=== PATIENT | female | born 1930 | race Caucasian/White ===

== ENCOUNTER 2017-10-02 06:20 | Observation (INO) ==
--- NOTE | 2017-10-02 06:40 | Emergency Department Note ---
Disposition Clinical Impression: SOB (shortness of breath), Elevated brain natriuretic peptide (BNP) level Disposition: Admitted As Inpatient Condition: Fair Referrals: Ree Tate CNP [Primary Care Provider] - Forms: ED Satisfaction Letter Time of Disposition: 08:00 SOB HPI - General Chief Complaint: ED Shortness of Breath/Dyspnea Stated Complaint: shortness of breath/weak Time Seen by Provider: 10/02/17 06:28 Source: patient Mode of arrival: ambulatory Limitations: no limitations Nursing Notes Reviewed: Yes Vital Signs Reviewed: Yes - History of Present Illness Nontoxic-appearing 86-year-old female presents for evaluation of shortness of breath and generalized weakness. The patient was seen here yesterday for the same complaint. At that time, she was found to have an elevated BNP level. At that time, as well, chest x-ray results showed minimal interstitial edema with trace effusions which were new from a previous chest x-ray obtained on a visit from September 20. There is concerned that there may be some element of congestive heart failure. The patient has not had a recent echocardiogram. On her visit yesterday, the patient was started on Lasix, 20 mg daily and instructed to follow-up with her primary care provider for a probable outpatient echocardiogram. The patient stated that she felt fine up until yesterday evening. At that time, or shortness of breath returned. She does describe an element of orthopnea as well as worsening exertional dyspnea. She denies any associated chest pain or palpitations. She denies any fever or chills. She denies any cough, sputum, or hemoptysis production. Pt Subjective Complaint: shortness of breath Onset (ago): week(s) Severity: moderate Consistency/Duration: gradually worsening Improves with: oxygen Worsens with: lying flat Associated symptoms: Reports: orthopnea. Denies: chest pain, pain with inspiration, fever, cough, wheezing, sputum production, palpitations, hemoptysis , nausea/vomiting, abdominal pain Treatment prior to arrival: none - Related Data Home oxygen amount: none Home Medications Medication Instructions Recorded Confirmed Losartan Potassium [Cozaar] 50 mg PO DAILY 01/24/16 10/02/17 Metoprolol Tartrate [Lopressor] 50 mg PO BID 01/24/16 10/02/17 Montelukast [Singulair] 10 mg PO DAILY 01/24/16 10/02/17 Simvastatin [Simvastatin] 10 mg PO QPM 01/24/16 10/02/17 Warfarin [Coumadin] 3 mg PO DAILY 01/24/16 10/02/17 dilTIAZem HCl [Diltiazem HCl] 120 mg PO QAM 01/24/16 10/02/17 LORazepam [Ativan] 0.5 mg PO DAILY PRN 10/02/17 10/02/17 Allergies Allergy/AdvReac Type Severity Reaction Status Date / Time ciprofloxacin [From Cipro] AdvReac Diarrhea Verified 05/10/16 08:25 Sulfa (Sulfonamide AdvReac Diarrhea Verified 05/10/16 08:25 Antibiotics) All systems ED: reviewed and negative except as stated. Constitutional: Denies: fever, chills, weakness, weight change Eyes: Denies: eye pain, eye discharge, vision change ENT ED: Denies: ear pain, throat pain, dental pain, hearing loss, epistaxis, congestion, dysphagia Cardiovascular: Reports: as per HPI, dyspnea on exertion, orthopnea. Denies: chest pain, palpitations, edema, syncope Respiratory: Reports: as per HPI, dyspnea. Denies: cough, wheezes, hemoptysis, stridor, sputum production Gastrointestinal: Denies: abdominal pain, nausea, vomiting, diarrhea, constipation, hematemesis, melena, hematochezia Genitourinary: Denies: dysuria, frequency, hematuria, discharge Musculoskeletal: Denies: back pain, neck pain, arthralgia, myalgia Integumentary: Denies: rash, abrasion, lesions Neurological: Denies: headache, weakness, numbness, paresthesias, confusion, abnormal gait, vertigo Psychiatric: Denies: anxiety, depression, suicidal thoughts, homicidal thoughts , auditory hallucinations, visual hallucinations Endocrine: Denies: fatigue Hematological/Lymphatic: Denies: easy bleeding, easy bruising Allergic/Immunologic: Denies: facial swelling, urticaria Past Medical History - Past Medical History Attestation: Yes The following information was validated with the patient. Source: patient, nursing notes reviewed Medical history: Reports: atrial fibrillation, hyperlipidemia, hypertension Psychiatric history: Reports: anxiety - Social History Smoking Status: Former smoker Smokeless Tobacco Status: No Alcohol use: Reports: none Drug use: Reports: none Physical Exam - General General appearance: alert, in no apparent distress - Head Head exam: atraumatic, normocephalic, normal inspection - Eye Eye exam: Present: normal appearance, PERRL, EOMI. Absent: nystagmus - ENT ENT exam: mucous membranes moist - Neck Neck exam: Present: normal inspection, full ROM, trachea midline - Chest Chest inspection: Present: normal inspection, symmetric chest wall rise - Respiratory Respiratory exam: Present: normal lung sounds bilaterally. Absent: respiratory distress, wheezes, stridor, accessory muscle use, prolonged expiratory phase - Cardiovascular Cardiovascular exam: Present: regular rate, normal rhythm, normal heart sounds - Abdominal Exam Abdominal exam: Present: soft, Non-Tender, normal bowel sounds - Extremities Exam Extremities exam: Present: normal inspection, full ROM, pedal edema (Trace pretibial edema noted bilaterally). Absent: tenderness - Neurological Exam Neurological exam: Present: alert, oriented X3 - Psychiatric Psychiatric exam: Present: normal affect, normal mood - Skin Skin exam: Present: warm, dry, intact, normal color Course Course Narrative: 0800: I spoke with Dr. Carrero, hospitalist on-call. Dr. Carrero has accepted the patient for admission to the hospitalist service for further evaluation and management. I discussed this plan with Dr. Eid, ED attending. Dr. Thorne has had a dase-rt-szna evaluation with the patient and agrees with this plan. Vital Signs Temperature 98.1 F 10/02/17 06:23 Pulse Rate 68 10/02/17 06:23 Respiratory Rate 14 10/02/17 06:23 Blood Pressure 155/81 10/02/17 06:23 O2 Sat by Pulse Oximetry 91 10/02/17 06:23 Temperature 98.1 F 10/02/17 06:23 Pulse Rate 68 10/02/17 06:23 Respiratory Rate 14 10/02/17 06:23 Blood Pressure 155/81 10/02/17 06:23 O2 Sat by Pulse Oximetry 91 10/02/17 06:23 Oxygen Delivery Oxygen Delivery Room Air Shortness of Breath/Dyspnea - MDM Narrative Medical decision making narrative: This documentation is done with the assistance of Dragon dictation. Despite efforts made to ensure accuracy, there may be inaccuracies in physician general practice or spelling and typographical errors. For this encounter, I have reviewed the [employer] or PA documentation, treatment plan, and medical decision making; and I have had face to face time with this patient. Patient seen and evaluated by Low Bonilla, prior to my arrival, he is considering admission for her stay asked if I would evaluate her once I arrived. Patient has a history of what sounds like dyspnea with possible CHF. Sounds like an acute exacerbation she is having no pain at this time. She has an enlarged heart on chest waiting on her BMP. She is getting some Lasix here blood pressure is not that elevated. She is on medications at this time and sees cardiology. We will bring her into the hospital for further evaluation. She is in agreement with this plan. Chest X-Ray 10/02/17 06:28 IMPRESSION: 1. Left-sided cardiac pacemaker with leads again projecting in the region of the right atrium as well as the coronary sinus. 2. Persistent enlargement of the cardiac silhouette with mild prominence of the interstitial markings. 3. No focal consolidation. D/ / Rashid Jerome MD / Rashid Jerome MD Interpreting Provider: Rashid Jerome MD - Medical Records Medical records reviewed: Yes I reviewed the patient's medical records. - Lab Data Lab results reviewed: Yes I reviewed the patient's lab results. Lab results narrative: Lab Results 10/02/17 10/02/17 10/02/17 Range/Units 06:40 06:40 06:40 WBC 7.1 (4.3-11.1) K/mcL RBC 4.73 (3.82-4.97) M/mcL Hgb 14.3 (11.5-15.4) g/dL Hct 42.9 (35.3-44.9) % MCV 90.7 (83.0-100.0) fL MCH 30.2 (28.0-33.3) pg MCHC 33.3 (31.6-35.5) g/dL RDW 14.4 (11.5-14.5) % Plt Count 216 (140-400) K/mcL MPV 9.3 L (9.4-12.4) fL Immature Gran % 0.4 (0-4) % Seg Neutrophils % 77.6 % Lymphocytes % 11.5 % Monocytes % 9.4 % Eosinophils % 1.0 % Basophils % 0.1 % Neutrophils # 5.5 (1.6-8.9) K/mcL Lymphocytes # 0.8 (0.6-4.6) K/mcL Monocytes # 0.7 (0.0-1.3) K/mcL Eosinophils # 0.1 (0.0-0.6) K/mcL Basophils # 0.0 (0.0-0.2) K/mcL PT (9.4-12.1) Seconds INR APTT (26.0-36.0) Seconds Sodium 138 (136-145) mEq/L Potassium 3.9 (3.5-5.1) mEq/L Chloride 103 (98-107) mEq/L Carbon Dioxide 25 (23-29) mEq/L BUN 26 H (8-23) mg/dL Creatinine 1.58 H (0.60-1.20) mg/dL Est GFR ( Amer) 38 L (> 60) Est GFR (Non-Af Amer) 31 L (> 60) BUN/Creatinine Ratio 16 (6-26) Glucose 117 H (70-105) mg/dL Calculated Osmolality 292 (280-300) Lactic Acid 0.9 (0.5-2.2) mmol/L Calcium 10.1 (8.6-10.3) mg/dL Troponin I < 0.03 (< 0.04) ng/mL B-Natriuretic Peptide (Less than 100) pg/mL Urine Color (Yellow) Urine Clarity (Clear) Urine pH (5.0-8.0) pH Units Ur Specific [place] (1.010-1.025) Urine Protein (Neg-Trace) mg/dL Urine Glucose (UA) (Normal) mg/dL Urine Ketones (Negative) mg/dL Urine Blood (Negative) Urine Nitrite (Negative) Urine Bilirubin (Negative) Urine Urobilinogen (Normal) mg/dL Ur Leukocyte Esterase (Negative) Urine Microscopic RBC (0-3) per hpf Urine Microscopic WBC (0-3) per hpf Ur Squamous Epith Cells (None-Few) per lpf Urine Bacteria (None-Few) per hpf Hyaline Casts (None-Few) per lpf Ur Culture Indicated? (NO) 10/02/17 10/02/17 10/02/17 Range/Units 06:40 06:40 06:58 WBC (4.3-11.1) K/mcL RBC (3.82-4.97) M/mcL Hgb (11.5-15.4) g/dL Hct (35.3-44.9) % MCV (83.0-100.0) fL MCH (28.0-33.3) pg MCHC (31.6-35.5) g/dL RDW (11.5-14.5) % Plt Count (140-400) K/mcL MPV (9.4-12.4) fL Immature Gran % (0-4) % Seg Neutrophils % % Lymphocytes % % Monocytes % % Eosinophils % % Basophils % % Neutrophils # (1.6-8.9) K/mcL Lymphocytes # (0.6-4.6) K/mcL Monocytes # (0.0-1.3) K/mcL Eosinophils # (0.0-0.6) K/mcL Basophils # (0.0-0.2) K/mcL PT 28.2 H (9.4-12.1) Seconds INR 2.5 APTT 41.2 H (26.0-36.0) Seconds Sodium (136-145) mEq/L Potassium (3.5-5.1) mEq/L Chloride (98-107) mEq/L Carbon Dioxide (23-29) mEq/L BUN (8-23) mg/dL Creatinine (0.60-1.20) mg/dL Est GFR ( Amer) (> 60) Est GFR (Non-Af Amer) (> 60) BUN/Creatinine Ratio (6-26) Glucose (70-105) mg/dL Calculated Osmolality (280-300) Lactic Acid (0.5-2.2) mmol/L Calcium (8.6-10.3) mg/dL Troponin I (< 0.04) ng/mL B-Natriuretic Peptide 675 H (Less than 100) pg/mL Urine Color Yellow (Yellow) Urine Clarity Clear (Clear) Urine pH 6.5 (5.0-8.0) pH Units Ur Specific [place] 1.013 (1.010-1.025) Urine Protein Trace (Neg-Trace) mg/dL Urine Glucose (UA) Normal (Normal) mg/dL Urine Ketones Negative (Negative) mg/dL Urine Blood Negative (Negative) Urine Nitrite Negative (Negative) Urine Bilirubin Negative (Negative) Urine Urobilinogen Normal (Normal) mg/dL Ur Leukocyte Esterase Moderate H (Negative) Urine Microscopic RBC 0-3 (0-3) per hpf Urine Microscopic WBC 3-5 H (0-3) per hpf Ur Squamous Epith Cells Many H (None-Few) per lpf Urine Bacteria None Seen (None-Few) per hpf Hyaline Casts None Seen (None-Few) per lpf Ur Culture Indicated? NO. A (NO) Result diagrams: 10/02/17 06:40 10/02/17 06:40 Lab Results 10/02/17 10/02/17 10/02/17 Range/Units 06:40 06:40 06:40 WBC 7.1 (4.3-11.1) K/mcL RBC 4.73 (3.82-4.97) M/mcL Hgb 14.3 (11.5-15.4) g/dL Hct 42.9 (35.3-44.9) % MCV 90.7 (83.0-100.0) fL MCH 30.2 (28.0-33.3) pg MCHC 33.3 (31.6-35.5) g/dL RDW 14.4 (11.5-14.5) % Plt Count 216 (140-400) K/mcL MPV 9.3 L (9.4-12.4) fL Immature Gran % 0.4 (0-4) % Seg Neutrophils % 77.6 % Lymphocytes % 11.5 % Monocytes % 9.4 % Eosinophils % 1.0 % Basophils % 0.1 % Neutrophils # 5.5 (1.6-8.9) K/mcL Lymphocytes # 0.8 (0.6-4.6) K/mcL Monocytes # 0.7 (0.0-1.3) K/mcL Eosinophils # 0.1 (0.0-0.6) K/mcL Basophils # 0.0 (0.0-0.2) K/mcL PT (9.4-12.1) Seconds INR APTT (26.0-36.0) Seconds Sodium 138 (136-145) mEq/L Potassium 3.9 (3.5-5.1) mEq/L Chloride 103 (98-107) mEq/L Carbon Dioxide 25 (23-29) mEq/L BUN 26 H (8-23) mg/dL Creatinine 1.58 H (0.60-1.20) mg/dL Est GFR ( Amer) 38 L (> 60) Est GFR (Non-Af Amer) 31 L (> 60) BUN/Creatinine Ratio 16 (6-26) Glucose 117 H (70-105) mg/dL Calculated Osmolality 292 (280-300) Lactic Acid 0.9 (0.5-2.2) mmol/L Calcium 10.1 (8.6-10.3) mg/dL Troponin I < 0.03 (< 0.04) ng/mL B-Natriuretic Peptide (Less than 100) pg/mL Urine Color (Yellow) Urine Clarity (Clear) Urine pH (5.0-8.0) pH Units Ur Specific [place] (1.010-1.025) Urine Protein (Neg-Trace) mg/dL Urine Glucose (UA) (Normal) mg/dL Urine Ketones (Negative) mg/dL Urine Blood (Negative) Urine Nitrite (Negative) Urine Bilirubin (Negative) Urine Urobilinogen (Normal) mg/dL Ur Leukocyte Esterase (Negative) Urine Microscopic RBC (0-3) per hpf Urine Microscopic WBC (0-3) per hpf Ur Squamous Epith Cells (None-Few) per lpf Urine Bacteria (None-Few) per hpf Hyaline Casts (None-Few) per lpf Ur Culture Indicated? (NO) 10/02/17 10/02/17 10/02/17 Range/Units 06:40 06:40 06:58 WBC (4.3-11.1) K/mcL RBC (3.82-4.97) M/mcL Hgb (11.5-15.4) g/dL Hct (35.3-44.9) % MCV (83.0-100.0) fL MCH (28.0-33.3) pg MCHC (31.6-35.5) g/dL RDW (11.5-14.5) % Plt Count (140-400) K/mcL MPV (9.4-12.4) fL Immature Gran % (0-4) % Seg Neutrophils % % Lymphocytes % % Monocytes % % Eosinophils % % Basophils % % Neutrophils # (1.6-8.9) K/mcL Lymphocytes # (0.6-4.6) K/mcL Monocytes # (0.0-1.3) K/mcL Eosinophils # (0.0-0.6) K/mcL Basophils # (0.0-0.2) K/mcL PT 28.2 H (9.4-12.1) Seconds INR 2.5 APTT 41.2 H (26.0-36.0) Seconds Sodium (136-145) mEq/L Potassium (3.5-5.1) mEq/L Chloride (98-107) mEq/L Carbon Dioxide (23-29) mEq/L BUN (8-23) mg/dL Creatinine (0.60-1.20) mg/dL Est GFR ( Amer) (> 60) Est GFR (Non-Af Amer) (> 60) BUN/Creatinine Ratio (6-26) Glucose (70-105) mg/dL Calculated Osmolality (280-300) Lactic Acid (0.5-2.2) mmol/L Calcium (8.6-10.3) mg/dL Troponin I (< 0.04) ng/mL B-Natriuretic Peptide 675 H (Less than 100) pg/mL Urine Color Yellow (Yellow) Urine Clarity Clear (Clear) Urine pH 6.5 (5.0-8.0) pH Units Ur Specific [place] 1.013 (1.010-1.025) Urine Protein Trace (Neg-Trace) mg/dL Urine Glucose (UA) Normal (Normal) mg/dL Urine Ketones Negative (Negative) mg/dL Urine Blood Negative (Negative) Urine Nitrite Negative (Negative) Urine Bilirubin Negative (Negative) Urine Urobilinogen Normal (Normal) mg/dL Ur Leukocyte Esterase Moderate H (Negative) Urine Microscopic RBC 0-3 (0-3) per hpf Urine Microscopic WBC 3-5 H (0-3) per hpf Ur Squamous Epith Cells Many H (None-Few) per lpf Urine Bacteria None Seen (None-Few) per hpf Hyaline Casts None Seen (None-Few) per lpf Ur Culture Indicated? NO. A (NO) - Radiology Data Radiology results reviewed: Yes I reviewed the patient's radiology results. Chest X-Ray 10/02/17 06:28 IMPRESSION: 1. Left-sided cardiac pacemaker with leads again projecting in the region of the right atrium as well as the coronary sinus. 2. Persistent enlargement of the cardiac silhouette with mild prominence of the interstitial markings. 3. No focal consolidation. D/ / Rashid Jerome MD / Rashid Jerome MD Interpreting Provider: Rashid Jerome MD - EKG Data EKG attestation: Yes I reviewed and interpreted this EKG. EKG results narrative: EKG reviewed by Dr. Agudelo as well. EKG shows atrial fibrillation at a rate of 77 bpm. QRS duration 136, QT/QTc interval 42/455. No ST elevation. No ectopy.
[2017-10-02 06:55] LABS: Basophils % 0.1 %; Eosinophils # 0.1 K/mcL (0.0-0.6); Hematocrit 42.9 % (35.3-44.9); Hemoglobin 14.3 g/dL (11.5-15.4); Immature Granulocytes % 0.4 % (0-4); Lymphocytes # 0.8 K/mcL (0.6-4.6); Lymphocytes % 11.5 %; Mean Corpuscular HGB Conc 33.3 g/dL (31.6-35.5); Mean Corpuscular Hemoglobin 30.2 pg (28.0-33.3); Mean Corpuscular Volume 90.7 fL (83.0-100.0); Mean Platelet Volume 9.3 fL (9.4-12.4); Monocytes # 0.7 K/mcL (0.0-1.3); Monocytes % 9.4 %; Neutrophils # 5.5 K/mcL (1.6-8.9); Platelet Count 216 K/mcL (140-400); Red Blood Count 4.73 M/mcL (3.82-4.97); Red Cell Distribution Width 14.4 % (11.5-14.5); Segmented Neutrophils % 77.6 %
[2017-10-02 07:00] LABS: INR 2.5; Prothrombin Time 28.2 Seconds (9.4-12.1)
[2017-10-02 07:03] LABS: Activated Partial Thrombo Time 41.2 Seconds (26.0-36.0)
[2017-10-02 07:10] LABS: Bilirubin,Urine Negative (Negative); Blood,Urine Negative (Negative); Clarity,Urine Clear (Clear); Color,Urine Yellow (Yellow); Glucose,Urine (UA) Normal (Normal); Ketones,Urine Negative (Negative); Leukocyte Esterase,Urine Moderate (Negative); Nitrite,Urine Negative (Negative); PH,Urine 6.5 pH Units (5.0-8.0); Protein,Urine Trace mg/dL (Neg-Trace); Specific Gravity,Urine 1.013 (1.010-1.025); Urobilinogen,Urine Normal (Normal)
[2017-10-02 07:19] LABS: Bacteria,Urine None Seen per hpf (None-Few); Hyaline Casts,Urine None Seen per lpf (None-Few); RBC,Urine 0-3 per hpf (0-3); Squamous Epithelial Cell,Urine Many per lpf (None-Few)
[2017-10-02 07:20] LABS: BUN/Creatinine Ratio 16 (6-26); Blood Urea Nitrogen 26 mg/dL (8-23); Calcium 10.1 mg/dL (8.6-10.3); Carbon Dioxide 25 mEq/L (23-29); Chloride 103 mEq/L (98-107); Glucose 117 mg/dL (70-105); Osmolality,Calculated 292 (280-300); Potassium 3.9 mEq/L (3.5-5.1); Sodium 138 mEq/L (136-145); Troponin I < 0.03 ng/mL (< 0.04); eGFR For Non-African Americans 31 (> 60)
[2017-10-02] MEDS ORDERED: Furosemide 40 MG/4 ML VIAL IVP ONE (07:24)
--- NOTE | 2017-10-02 09:46 | Electrocardiograph Report ---
[address] [address] Test Date: 2017-10-02 Pat Name: Nimo Carvajal Department: [id number] Room: 3B14 Gender: F Home Security Alarm Installer: : [id number] Requested By: Low Bonilla Order Number: [id number] Reading MD: Sascha Lopez Measurements Intervals [place] Rate: 77 P: [place]: 0 QRS: -23 QRSD: 136 T: 31 QT: 424 QTc: 455 Interpretive Statements ATRIAL FIBRILLATION BORDERLINE LEFT AXIS DEVIATION RIGHT BUNDLE BRANCH BLOCK VOLTAGE CRITERIA FOR LVH Electronically Signed On 10-02-2017 9:44:43 EDT by Sascha Lopez
--- NOTE | 2017-10-02 10:52 | Cardiology Consult Note ---
Addendum entered and electronically signed by Nico Luna CNP 10/02/17 14:10 : Echo pending. Cardiology will s/o, re-consult PRN, f/u arranged. Original Note: <Nico Luna - Last Filed: 10/02/17 12:53> Date of Encounter: 10/02/17 Time of Encounter: 11:00 Assessment and Plan (1) SOB (shortness of breath) Current Visit: Yes Status: Acute Per Cardiology: BNP 675, was noted yesterday to be 538. Of note to 281 in 2014. Status post IV Lasix 40 mg 1. Previous echo from March 2014 showed EF 65%, indeterminate diastolic function, mildly dilated left atrium, mildly dilated right atrium, moderate TR, mild pulmonary hypertension. Suspect mild CHF. Echo pending. (2) Atrial fibrillation, chronic Current Visit: No Status: Chronic Per Cardiology: History of tachybradycardia syndrome, atrial fibrillation with dual-chamber pacemaker and on Coumadin for anticoagulation follows with [facility]. Current INR 2.5. Denies any active bleeding or blood loss. Discussion w patient/family: The assessment and plan as outlined above was discussed with the patient who expressed understanding and agreement. All questions were answered. Thank you for involving us in the care of your patient. Please call with any questions. History of Present Illness Consult date: 10/02/17 Requesting physician: Mike Carrero Consult reason: SOB Chief complaint: SOb at rest History of present illness: Ms. Carvajal is a 86 year old female with a relevant past medical history of tachybradycardia syndrome with pacemaker, CAD, atrial fibrillation, HTN, HLD. Last seen by cardiology August [address] Reno Hull. Cardiology consult for shortness of breath. Patient reports increased shortness of breath at rest occurring at nighttime upon awakening the past 3-4 weeks. She does report high sodium intake and eats lots of potato chips. She reports baseline weight about 142-148 pounds, does not weight herself on a daily basis. She denies any chest pain, palpitations, dizziness, syncope, falls. Denies any active bleeding or blood loss. Reports shortness of breath has improved with IV Lasix in the ER. Past Med Surg Social Fam HX - Past Medical History Attestation: Yes The following information was validated with the patient. Source: patient, old records reviewed Medical history: atrial fibrillation, hyperlipidemia, hypertension Psychiatric history: anxiety - Past Surgical History Additional surgical history: left arm, pacemaker, carotid endardectomy - Social History Smoking Status: Former smoker Smokeless Tobacco Status: No Alcohol use: none Drug use: none Medications and Allergies Losartan Potassium [Cozaar] 50 mg PO DAILY 01/24/16 [History] Metoprolol Tartrate [Lopressor] 50 mg PO BID 01/24/16 [History] Montelukast [Singulair] 10 mg PO DAILY 01/24/16 [History] Simvastatin [Simvastatin] 10 mg PO QPM 01/24/16 [History] Warfarin [Coumadin] 3 mg PO DAILY 01/24/16 [History] dilTIAZem HCl [Diltiazem HCl] 120 mg PO QAM 01/24/16 [History] LORazepam [Ativan] 0.5 mg PO DAILY PRN 10/02/17 [History] 3 Allergy/AdvReac Type Severity Reaction Status Date / Time ciprofloxacin [From Cipro] AdvReac Diarrhea Verified 05/10/16 08:25 Sulfa (Sulfonamide AdvReac Diarrhea Verified 05/10/16 08:25 Antibiotics) All Systems Review: The remainder of the systems were reviewed and are negative - Cardiovascular Cardiovascular: as per HPI, dyspnea at rest - Respiratory Respiratory: cough Physical Examination Vital Signs, Last 4 Hours Temp Pulse Resp BP Pulse Ox 10/02/17 08:52 97.5 F L 71 15 147/76 95 10/02/17 08:29 19 131/66 General: Conversant, No Apparent Distress HEENT: Atraumatic, Normocephaly, Mucus Membranes Moist Neck: No JVD, Normal carotid pulses Cardiac: No Murmur, Other (Irregularly irregular) Lungs: Normal Breath Sounds, No Wheeze, Rales, Rhonchi Neuro: Alert and responsive, No focal deficits noted Abdomen: Soft, Non-Tender Skin: No rashes noted on visualized skin Musculoskeletal: No Chest Wall Tenderness Extremities: No Clubbing, No Cyanosis, Normal Pulses, Other (Trace bilateral lower extremity nonpitting edema) Results 10/02/17 06:40 10/02/17 06:40 Laboratory Tests 01/25/17 06/08/17 09/20/17 11:02 12:02 12:34 Hgb Hct INR Creatinine 1.84 H 1.63 H 1.78 H Est GFR (Non-Af Amer) 26 L 30 L 27 L Troponin I B-Natriuretic Peptide 10/01/17 10/02/17 10/02/17 08:33 06:40 06:40 Hgb 14.3 Hct 42.9 INR Creatinine 1.73 H 1.58 H Est GFR (Non-Af Amer) 28 L 31 L Troponin I < 0.03 B-Natriuretic Peptide 10/02/17 10/02/17 06:40 06:40 Hgb Hct INR 2.5 Creatinine Est GFR (Non-Af Amer) Troponin I B-Natriuretic Peptide 675 H ITS Impressions Chest X-Ray 10/02/17 06:28 IMPRESSION: 1. Left-sided cardiac pacemaker with leads again projecting in the region of the right atrium as well as the coronary sinus. 2. Persistent enlargement of the cardiac silhouette with mild prominence of the interstitial markings. 3. No focal consolidation. D/ / Rashid Jerome MD / Rashid Jerome MD Interpreting Provider: Rashid Jerome MD - Imaging and Cardiology Echo: pending, report reviewed - EKG Interpretation EKG results cardiology: personally reviewed (Rasheed arevalo in 70s), no diagnostic ischemia Consult Discharge Plan - Plan Referrals: Ree Tate INSURANCE POLICY CLERK [Primary Care Provider] - <BrightLouann - Last Filed: 10/02/17 15:35> Date of Encounter: 10/02/17 - Attending Attestation I examined this patient and my medical decision-making was reviewed with the INSURANCE POLICY CLERK. I agree with the documented findings, disposition and treatment plan as described. Ms. Carvajal presents with SOB for the past month. Endorses increased dietary sodium indiscretion. Noticeable elevated BP in setting of CKD. Mild interstitial prominence on CXR, mild elevation of BNP. Patient appears comfortable at the bedside. She is interested in going home. Breathing comfortably on room air. IV diuresis and BP management per primary team. Awaiting Echo findings. Provided echo findings are unremarkable, would recommend outpatient follow up. Assessment and Plan Discussion w patient/family: The assessment and plan as outlined above was discussed with the patient and/or family members who expressed understanding and agreement. All questions were answered. Thank you for involving us in the care of your patient. Please call with any questions. History of Present Illness History of present illness: Ms. Carvajal is a 86 year old female All Systems Review: The remainder of the systems were reviewed and are negative Physical Examination Vital Signs, Last 4 Hours Pulse Resp BP Pulse Ox 10/02/17 13:10 58 18 179/76 97 10/02/17 12:40 63 18 178/73 95 10/02/17 12:25 58 18 174/73 95 10/02/17 12:10 65 18 173/67 95 Results 10/02/17 06:40 10/02/17 06:40
--- NOTE | 2017-10-02 18:03 | Internal Med History&Physical ---
Date of Encounter: 10/02/17 Time of Encounter: 11:00 Internal Medicine - H&P: HPI Chief complaint: Shortness of breath Admitted From: Home Plans for Post Hospital Care: Home History of present illness: Patient is an 86-year-old female with past medical history significant for A. fib with AICD, hypertension and hyperlipidemia who presents to the ER on 10/02/17 due to some breath. Patient reports a one-week history of shortness of breath with exertion. Patient with no improvement in symptoms so decided come to the ER for evaluation. In the ER, patient was found to have a BNP of 675 with persistent enlargement of the cardiac silhouette with mild prominence of the interstitial markings on chest x-ray. Patient will be admitted for CHF exacerbation. Past Med Surg Social Fam HX - Past Medical History Medical history: atrial fibrillation, hyperlipidemia, hypertension Psychiatric history: anxiety - Past Surgical History Additional surgical history: left arm, pacemaker, carotid endardectomy - Social History Smoking Status: Former smoker Smokeless Tobacco Status: No Alcohol use: none Drug use: none - Additional Family History Additional family history: Noncontributory Internal Medicine - H&P: Meds Losartan Potassium [Cozaar] 50 mg PO DAILY 01/24/16 [History] Metoprolol Tartrate [Lopressor] 50 mg PO BID 01/24/16 [History] Montelukast [Singulair] 10 mg PO DAILY 01/24/16 [History] Simvastatin [Simvastatin] 10 mg PO QPM 01/24/16 [History] Warfarin [Coumadin] 3 mg PO DAILY 01/24/16 [History] dilTIAZem HCl [Diltiazem HCl] 120 mg PO QAM 01/24/16 [History] LORazepam [Ativan] 0.5 mg PO DAILY PRN 10/02/17 [History] 3 Allergy/AdvReac Type Severity Reaction Status Date / Time ciprofloxacin [From Cipro] AdvReac Diarrhea Verified 05/10/16 08:25 Sulfa (Sulfonamide AdvReac Diarrhea Verified 05/10/16 08:25 Antibiotics) All Systems PM: A 10-system review of systems was performed and is negative for pertinent findings except as documented above in the HPI. - Constitutional Vitals: Temp Pulse Resp BP Pulse Ox 98.1 F 71 16 138/82 95 10/02/17 15:33 10/02/17 15:33 10/02/17 15:33 10/02/17 15:33 10/02/17 15:33 General appearance: Present: A&O X 3, no acute distress - Eye Eye exam: Present: normal appearance - ENT ENT exam: Present: mucous membranes moist - Respiratory Respiratory exam: Present: CTAB. Absent: accessory muscle use, rales, rhonchi, wheezes - Cardiovascular Cardiovascular exam: Present: RRR, +S1, +S2. Absent: diastolic murmur, gallop, rubs, systolic murmur - GI/Abdominal GI/Abdominal exam: Present: normal bowel sounds, soft, no peritoneal signs. Absent: distended, tenderness - Extremities Exam Extremities exam: Absent: pedal edema - Neurological Exam Neurological exam: Present: oriented X3 - Psychiatric Psychiatric exam: Present: normal mood - Skin Skin exam: Present: normal color Internal Med - H&P Results - Labs CBC & Chem 7: 10/02/17 06:40 10/02/17 06:40 - Assessment and plan (1) SOB (shortness of breath) Current Visit: Yes Status: Acute Assessment and plan: Patient found to have elevated BNP of 675 on admission She was given 1 dose of IV Lasix 40 mg. Echocardiogram pending Cardiology consulted and appreciate recommendations. (2) Atrial fibrillation, chronic Current Visit: No Status: Chronic Assessment and plan: Rate controlled on metoprolol and Cardizem Continue Coumadin for anticoagulation; INR therapeutic at 2.5 (3) HLD (hyperlipidemia) Current Visit: Yes Status: Acute Assessment and plan: Continue statin Qualifiers: Hyperlipidemia type: unspecified Qualified Code(s): E78.5 - Hyperlipidemia , unspecified (4) DVT prophylaxis Current Visit: Yes Status: Acute Assessment and plan: Patient on Coumadin as above - Time Spent With Patient Total time spent is greater than 50% in coordination of care (as documented) at patient's floor/unit and/or counseling patient:
[2017-10-02] MEDS ORDERED: Naloxone 0.4 MG/ML INJ IVP PRN (18:15)
[2017-10-02] MEDS ORDERED: *HR* LORazepam 0.5 MG TABLET PO PRN (18:18)
[2017-10-02] MEDS: *HR* Warfarin 3 MG TABLET PO SCH (19:35)
[2017-10-03 04:56] LABS: Basophils % 0.3 %; Eosinophils # 0.1 K/mcL (0.0-0.6); Eosinophils % 0.7 %; Hematocrit 44.1 % (35.3-44.9); Hemoglobin 14.8 g/dL (11.5-15.4); Immature Granulocytes % 0.1 % (0-4); Lymphocytes # 1.1 K/mcL (0.6-4.6); Lymphocytes % 14.9 %; Mean Corpuscular HGB Conc 33.6 g/dL (31.6-35.5); Mean Corpuscular Hemoglobin 30.2 pg (28.0-33.3); Monocytes # 0.8 K/mcL (0.0-1.3); Monocytes % 10.7 %; Neutrophils # 5.4 K/mcL (1.6-8.9); Platelet Count 218 K/mcL (140-400); Red Cell Distribution Width 14.4 % (11.5-14.5); Segmented Neutrophils % 73.3 %
[2017-10-03 05:13] LABS: Calcium 10.3 mg/dL (8.6-10.3); Potassium 3.6 mEq/L (3.5-5.1)
[2017-10-03] MEDS ORDERED: Ondansetron ODT 4 MG TAB.RAPDIS SL ONE (06:37)
[2017-10-03] MEDS: *HR* Warfarin 3 MG TABLET PO SCH (08:50)
[2017-10-03] MEDS ORDERED: dilTIAZem HCl 60 MG TABLET PO SCH (09:00)
[2017-10-03 11:03] VITALS: BP 116/75
[2017-10-03] MEDS ORDERED: Furosemide 20 MG TABLET PO SCH (11:45)
--- NOTE | 2017-10-03 11:51 | Discharge Summary ---
- NOTES TO OUTPATIENT PROVIDER Notes to Outpatient Provider: Admitted with shortness of breath, concerns for congestive heart failure. Treated with IV diuretics, Respiratory status improved. She was able to ambulate in the schmitt on room air with portable pulse oximeter with SPO2 dropping to 90-91% with ambulation and returning back to 96 or greater with rest. She is being discharged with a new prescription for Lasix 20 mg daily x3 days. Date of Encounter: 10/03/17 Time of Encounter: 11:47 - Discharge Diagnosis (1) SOB (shortness of breath) Priority: Secondary Status: Acute Assessment and Plan: Patient found to have elevated BNP of 675 on admission--chest x-ray shows cardiomegaly and mild prominence of interstitial markings She was given 1 dose of IV Lasix 40 mg, shortness of breath improved. However, per auscultation this morning she was found to have fine crackles in the right lower lobe She was able to ambulate around the unit on room air and portable pulse oximeter with SPO2 dropping to 90 and returning back to 94-96% with rest She is being started on 20 mg by mouth Lasix daily x3 days Echocardiogram pending She is instructed to follow up with her PCP within 1 week of discharge (2) Atrial fibrillation, chronic Priority: Primary Status: Chronic Assessment and Plan: continue coumadin f/u with anticoagulation clinic (3) HLD (hyperlipidemia) Priority: Secondary Status: Acute Qualifiers: Hyperlipidemia type: unspecified Qualified Code(s): E78.5 - Hyperlipidemia , unspecified (4) DVT prophylaxis Priority: Secondary Status: Acute Hospital course: Ms. Carvajal is a 86 year old female who was admitted for shortness of breath. Found to have an elevated BNP on arrival. He was given 40 mg IV Lasix, respiratory status improved. Uneventful hospital course, on day of discharge 10/03/17 patient reporting that she is returning back to baseline status. She was able to ambulate in the hallway on room air and portable pulse oximeter with SPO2 dropping to 90% and returning to 94-96% with rest. She does not appear overtly short of breath. Per auscultation this morning she continues to have fine right lower lobe crackles. She will be discharged with Lasix 20 mg by mouth daily 3 days has been instructed to follow-up with her PCP within one week. TTE completed with the following findings--normal LV size and function, mild LV hypertrophy, indeterminate diastolic function, atypical septal motion consistent with paced rhythm, normal RV structure and function, mild aortic regurgitation, mild aortic stenosis, mild mitral stenosis, mild to moderate regurgitation, mild tricuspid regurgitation, mild pulmonary hypertension. He device lead was visualized in the right atrium and right ventricle Discharge discussed with: patient, family, nurse - Time Spent with Patient Total time spent providing and/or coordinating discharge services: Less than 30 minutes - Discharge Medications Prescriptions: Furosemide [Lasix] 20 mg PO DAILY 3 Days #3 tablet Home Medications: Losartan Potassium [Cozaar] 50 mg PO DAILY 01/24/16 [History] Metoprolol Tartrate [Lopressor] 50 mg PO BID 01/24/16 [History] Montelukast [Singulair] 10 mg PO DAILY 01/24/16 [History] Simvastatin 10 mg PO QPM 01/24/16 [History] Warfarin [Coumadin] 3 mg PO DAILY 01/24/16 [History] dilTIAZem HCl [Diltiazem HCl] 120 mg PO QAM 01/24/16 [History] LORazepam [Ativan] 0.5 mg PO DAILY PRN 10/02/17 [History] Furosemide [Lasix] 20 mg PO DAILY 3 Days #3 tablet 10/03/17 [Rx] Allergies/Adverse Reactions: 3 Allergy/AdvReac Type Severity Reaction Status Date / Time ciprofloxacin [From Cipro] AdvReac Diarrhea Verified 05/10/16 08:25 Sulfa (Sulfonamide AdvReac Diarrhea Verified 05/10/16 08:25 Antibiotics) Date of admission: 10/02/17 08:06 Primary care physician: Ree Tate CNP Consults: 10/02/17 10:03 Consult to Cardiology [CONS] Routine Comment: Consulting Provider: Cardiology Vandana Reason for Consult: new onset CHF Call Completed: No 10/02/17 10:04 Consult to Nurse Navigator [CONS] Routine Comment: CHF Discharging clinician: Chris Brizuela Anticipated date of discharge: 10/03/17 - Constitutional Vitals: Temp Pulse Resp BP Pulse Ox 98.2 F 73 15 116/75 93 10/03/17 11:02 10/03/17 11:02 10/03/17 11:02 10/03/17 11:02 10/03/17 11:02 General appearance: Present: A&O X 3, no acute distress - Head Head exam: Present: atraumatic, normocephalic - Eye Eye exam: Present: PERRL, conjuntiva pink, sclera anicteric Pupils: Present: PERRL - Neck Neck exam general surgery: Present: supple, trachea midline. Absent: lymphadenopathy - Respiratory Respiratory exam: Present: CTAB, rales (Fine crackles right lower lobe). Absent : accessory muscle use, rhonchi, wheezes - Cardiovascular Cardiovascular exam: Present: RRR, +S1, +S2. Absent: diastolic murmur, gallop, rubs, systolic murmur - GI/Abdominal GI/Abdominal exam: Present: normal bowel sounds, soft, no peritoneal signs. Absent: distended, tenderness - Extremities Exam Extremities exam: Present: warm, radial pulses palpable and symmetrical. Absent : calf tenderness, cyanotic, pedal edema - Neurological Exam Neurological exam: Present: CN II-XII intact, oriented X3, no focal deficits. Absent: pronater drift, facial droop, speech deficit - Skin Skin exam: Present: dry, intact - Patient Status Disposition: Home, Self-Care Condition: Fair Functional capacity at discharge: independent ambulation Overall status at discharge: patient is progressing back to baseline - Discharge Instructions Follow Up With: Ree Tate CNP [Primary Care Provider] - 10/09/17 1:00 pm - Diet and Activity Activity: increase activity as tolerated, resume usual activities as tolerated Diet: diabetic diet, low fat, low cholesterol
[2017-10-03] MEDS ORDERED: *HR* Warfarin 3 MG TABLET PO SCH (18:00)
== END 2017-10-03 14:28 | disposition home or self-care (01) ==
LOC: EMEROO 06:20 → 3BNU 06:20
PROVIDERS: ADMIT Hospitalist; ATTEND Hospitalist

== ENCOUNTER 2019-02-23 08:24 | Inpatient (IN) ==
[2019-02-23 09:08] LABS: INR 2.7; Prothrombin Time 30.5 Seconds (9.4-12.1)
[2019-02-23 09:10] LABS: Basophils % 0.3 %; Eosinophils # 0.1 K/mcL (0.0-0.6); Eosinophils % 1.2 %; Hematocrit 40.9 % (35.3-44.9); Hemoglobin 13.6 g/dL (11.5-15.4); Immature Granulocytes % 0.1 % (0-4); Lymphocytes % 14.8 %; Mean Corpuscular HGB Conc 33.3 g/dL (31.6-35.5); Mean Corpuscular Hemoglobin 30.1 pg (28.0-33.3); Mean Corpuscular Volume 90.5 fL (83.0-100.0); Monocytes # 0.5 K/mcL (0.0-1.3); Monocytes % 7.7 %; Neutrophils # 5.2 K/mcL (1.6-8.9); Platelet Count 221 K/mcL (140-400); Red Blood Count 4.52 M/mcL (3.82-4.97); Red Cell Distribution Width 15.1 % (11.5-14.5); Segmented Neutrophils % 75.9 %; White Blood Count 6.9 K/mcL (4.3-11.1)
[2019-02-23 09:25] LABS: Alanine Aminotransferase 20 Units/L (7-52); Albumin 4.2 g/dL (3.5-5.7); Albumin/Globulin Ratio 1.4 (1.1-2.2); Alkaline Phosphatase 73 Units/L (34-104); Aspartate Amino Transferase 29 Units/L (13-39); BUN/Creatinine Ratio 17 (6-26); Bilirubin,Direct 0.4 mg/dL (0.0-0.2); Bilirubin,Indirect 1.3 mg/dL (0.0-1.0); Bilirubin,Total 1.7 mg/dL (0.3-1.0); Blood Urea Nitrogen 32 mg/dL (8-23); Calcium 10.1 mg/dL (8.6-10.3); Carbon Dioxide 23 mEq/L (23-29); Chloride 104 mEq/L (98-107); Globulin 3.1 g/dL (2.4-3.5); Glucose 109 mg/dL (70-105); Osmolality,Calculated 297 (280-300); Potassium 4.2 mEq/L (3.5-5.1); Sodium 140 mEq/L (136-145); Total Protein 7.3 g/dL (6.4-8.9); Troponin I < 0.03 ng/mL (< 0.04); eGFR For African Americans 32 (> 60); eGFR For Non-African Americans 26 (> 60)
[2019-02-23] MEDS ORDERED: Furosemide 40 MG/4 ML VIAL IVP ONE (09:26)
[2019-02-23] MEDS ORDERED: Aspirin 325 MG TABLET PO ONE (09:48)
[2019-02-23] MEDS ORDERED: Acetaminophen 325 MG TABLET PO PRN (13:03)
[2019-02-23] MEDS ORDERED: MOM Conc 10 ML UD.LIQ PO PRN (13:03)
[2019-02-23] MEDS ORDERED: Mag Hydrox/Al Hydrox/Simeth 30 ML UDC PO PRN (13:03)
[2019-02-23] MEDS ORDERED: *HR* Promethazine 25 MG/ML VIAL IVP PRN (13:03)
[2019-02-23] MEDS ORDERED: Naloxone 0.4 MG/ML INJ IVP PRN (13:03)
[2019-02-23] MEDS ORDERED: Ondansetron 4 MG/2 ML VIAL IVP PRN (13:03)
[2019-02-23] MEDS: Furosemide 20 MG/2 ML VIAL IVP SCH (17:12)
[2019-02-23] MEDS ORDERED: Warfarin perPT PO PRN (18:00)
[2019-02-23] MEDS ORDERED: *HR* Warfarin 3 MG TABLET PO ONE (18:00)
[2019-02-23] MEDS: Metoprolol 100 MG TABLET PO SCH (21:09)
[2019-02-24 05:24] LABS: Basophils % 0.3 %; Eosinophils # 0.1 K/mcL (0.0-0.6); Eosinophils % 1.4 %; Hematocrit 44.1 % (35.3-44.9); Hemoglobin 14.5 g/dL (11.5-15.4); Immature Granulocytes % 0.1 % (0-4); Lymphocytes # 0.9 K/mcL (0.6-4.6); Lymphocytes % 12.8 %; Mean Corpuscular HGB Conc 32.9 g/dL (31.6-35.5); Mean Corpuscular Hemoglobin 30.3 pg (28.0-33.3); Mean Corpuscular Volume 92.3 fL (83.0-100.0); Mean Platelet Volume 9.8 fL (9.4-12.4); Monocytes # 0.8 K/mcL (0.0-1.3); Monocytes % 10.3 %; Neutrophils # 5.5 K/mcL (1.6-8.9); Platelet Count 227 K/mcL (140-400); Red Blood Count 4.78 M/mcL (3.82-4.97); Red Cell Distribution Width 14.6 % (11.5-14.5); Segmented Neutrophils % 75.1 %; White Blood Count 7.4 K/mcL (4.3-11.1)
[2019-02-24 05:35] LABS: INR 2.7; Prothrombin Time 30.7 Seconds (9.4-12.1)
[2019-02-24 05:44] LABS: Calcium 10.2 mg/dL (8.6-10.3); Potassium 3.6 mEq/L (3.5-5.1)
[2019-02-24] MEDS: Diltiazem CD (24hr) 120 MG CAPSULE PO SCH (07:50)
[2019-02-24] MEDS: Metoprolol 100 MG TABLET PO SCH ×2 (07:51→20:14)
[2019-02-24] MEDS: Furosemide 20 MG/2 ML VIAL IVP SCH (07:51)
[2019-02-24] MEDS ORDERED: NON-FORMULARY MEDICATION 1 EACH EACH (Losartan Potassium [Cozaar] 50 MG) PO SCH (09:00)
[2019-02-24] MEDS ORDERED: *HR* Warfarin 3 MG TABLET PO ONE (18:00)
[2019-02-25 04:21] LABS: Basophils % 0.4 %; Eosinophils # 0.1 K/mcL (0.0-0.6); Eosinophils % 1.6 %; Hematocrit 48.4 % (35.3-44.9); Hemoglobin 15.9 g/dL (11.5-15.4); Immature Granulocytes % 0.2 % (0-4); Lymphocytes # 1.6 K/mcL (0.6-4.6); Lymphocytes % 18.8 %; Mean Corpuscular HGB Conc 32.9 g/dL (31.6-35.5); Mean Corpuscular Hemoglobin 30.1 pg (28.0-33.3); Mean Corpuscular Volume 91.5 fL (83.0-100.0); Mean Platelet Volume 9.8 fL (9.4-12.4); Monocytes # 0.9 K/mcL (0.0-1.3); Monocytes % 9.9 %; Neutrophils # 5.9 K/mcL (1.6-8.9); Platelet Count 263 K/mcL (140-400); Red Blood Count 5.29 M/mcL (3.82-4.97); Red Cell Distribution Width 14.8 % (11.5-14.5); Segmented Neutrophils % 69.1 %; White Blood Count 8.6 K/mcL (4.3-11.1)
[2019-02-25 04:35] LABS: INR 2.3; Prothrombin Time 26.6 Seconds (9.4-12.1)
[2019-02-25 04:42] LABS: Calcium 10.4 mg/dL (8.6-10.3); Potassium 3.8 mEq/L (3.5-5.1)
[2019-02-25] MEDS: Metoprolol 100 MG TABLET PO SCH ×2 (08:22→22:07)
[2019-02-25] MEDS: Diltiazem CD (24hr) 120 MG CAPSULE PO SCH (08:22)
[2019-02-25] MEDS ORDERED: Furosemide 40 MG TABLET PO SCH (09:00)
[2019-02-25] MEDS ORDERED: 0.9 % Sodium Chloride 500 ML IVC SCH ×2 (14:00→14:37)
[2019-02-25] MEDS ORDERED: *HR* Warfarin 3 MG TABLET PO ONE (18:00)
[2019-02-25] MEDS: Maxitrol Opth OINT 3.5 GM TUBE RIGHT EYE SCH ×2 (18:03→22:08)
[2019-02-25] MEDS: Loratadine/Pseudophed (12 HR) 1 EACH TABLET PO SCH (22:25)
[2019-02-26 07:38] LABS: Basophils % 0.3 %; Eosinophils # 0.2 K/mcL (0.0-0.6); Eosinophils % 2.2 %; Hematocrit 43.8 % (35.3-44.9); INR 2.6; Immature Granulocytes % 0.1 % (0-4); Lymphocytes # 1.3 K/mcL (0.6-4.6); Mean Corpuscular HGB Conc 32.4 g/dL (31.6-35.5); Mean Corpuscular Hemoglobin 29.8 pg (28.0-33.3); Mean Platelet Volume 10.3 fL (9.4-12.4); Monocytes # 0.8 K/mcL (0.0-1.3); Monocytes % 11.3 %; Neutrophils # 4.7 K/mcL (1.6-8.9); Platelet Count 250 K/mcL (140-400); Prothrombin Time 29.9 Seconds (9.4-12.1); Red Blood Count 4.76 M/mcL (3.82-4.97); Red Cell Distribution Width 14.9 % (11.5-14.5); Segmented Neutrophils % 68.1 %; White Blood Count 6.9 K/mcL (4.3-11.1)
[2019-02-26 07:53] LABS: Calcium 9.6 mg/dL (8.6-10.3); Potassium 3.6 mEq/L (3.5-5.1)
[2019-02-26 08:57] LABS: Hemoglobin 14.2 g/dL (11.5-15.4)
[2019-02-26 09:21] VITALS: BP 135/64
[2019-02-26] MEDS: Loratadine/Pseudophed (12 HR) 1 EACH TABLET PO SCH (09:45)
[2019-02-26] MEDS: Metoprolol 100 MG TABLET PO SCH (09:45)
[2019-02-26] MEDS: Diltiazem CD (24hr) 120 MG CAPSULE PO SCH (09:45)
[2019-02-26] MEDS: Maxitrol Opth OINT 3.5 GM TUBE RIGHT EYE SCH (09:45)
== END 2019-02-26 12:02 | disposition home or self-care (01) | DRG 291 ==
LOC: EMEROOARM 08:24 → CDU 08:24 → SUATTDRO 10:16 → CDU 10:58 → 2ANU 16:33
PROVIDERS: ADMIT Internal Medicine; ATTEND Internal Medicine

== ENCOUNTER 2019-04-27 09:23 | Inpatient (IN) ==
[2019-04-27] MEDS ORDERED: 0.9 % Sodium Chloride 1,000 ML IVC SCH (09:30)
[2019-04-27 10:20] LABS: Basophils % 0.1 %; Hematocrit 41.3 % (35.3-44.9); Hemoglobin 13.2 g/dL (11.5-15.4); Immature Granulocytes % 0.2 % (0-4); Lymphocytes # 0.5 K/mcL (0.6-4.6); Lymphocytes % 5.5 %; Mean Corpuscular Hemoglobin 29.9 pg (28.0-33.3); Mean Corpuscular Volume 93.4 fL (83.0-100.0); Mean Platelet Volume 9.9 fL (9.4-12.4); Monocytes # 0.5 K/mcL (0.0-1.3); Platelet Count 209 K/mcL (140-400); Red Blood Count 4.42 M/mcL (3.82-4.97); Segmented Neutrophils % 89.2 %
[2019-04-27 10:21] LABS: INR 2.1; Prothrombin Time 24.2 Seconds (9.4-12.1)
[2019-04-27 10:25] LABS: Neutrophils # 8.4 K/mcL (1.6-8.9); White Blood Count 9.4 K/mcL (4.3-11.1)
[2019-04-27 10:43] LABS: BUN/Creatinine Ratio 19 (6-26); Blood Urea Nitrogen 38 mg/dL (8-23); Calcium 9.6 mg/dL (8.6-10.3); Carbon Dioxide 22 mEq/L (23-29); Chloride 102 mEq/L (98-107); Creatine Kinase 131 Units/L (30-223); Glucose 121 mg/dL (70-105); Osmolality,Calculated 300 (280-300); Potassium 3.9 mEq/L (3.5-5.1); Sodium 140 mEq/L (136-145); Troponin I < 0.03 ng/mL (< 0.04); eGFR For African Americans 29 (> 60); eGFR For Non-African Americans 24 (> 60)
[2019-04-27] MEDS ORDERED: Acetaminophen 325 MG TABLET PO PRN (11:17)
[2019-04-27] MEDS ORDERED: Naloxone 0.4 MG/ML INJ IVP PRN (11:17)
[2019-04-27 12:03] LABS: Bilirubin,Urine Negative (Negative); Blood,Urine Trace (Negative); Clarity,Urine Clear (Clear); Color,Urine Yellow (Yellow); Glucose,Urine (UA) Normal (Normal); Ketones,Urine Trace mg/dL (Negative); Leukocyte Esterase,Urine Negative (Negative); Nitrite,Urine Negative (Negative); Protein,Urine 30 mg/dL (Neg-Trace); Urobilinogen,Urine Normal (Normal)
[2019-04-27 12:06] LABS: Bacteria,Urine None Seen per hpf (None-Few); Hyaline Casts,Urine None Seen per lpf (None-Few); RBC,Urine 0-3 per hpf (0-3); Squamous Epithelial Cell,Urine Moderate per lpf (None-Few); WBC,Urine 0-3 per hpf (0-3)
[2019-04-27] MEDS: *HR* HYDROcodone/Acet 5/325 mg TABLET PO PRN ×2 (12:51→19:39)
[2019-04-27] MEDS: cefTRIAXone 1,000 MG in Water for inj. (sterile) 10 ML IVP SCH (13:28)
[2019-04-27] MEDS: Azithromycin 500 MG in 0.9 % Sodium Chloride 250 ML IVPB SCH (13:29)
[2019-04-27] MEDS: Metoprolol 100 MG TABLET PO SCH (13:35)
[2019-04-28] MEDS: *HR* HYDROcodone/Acet 5/325 mg TABLET PO PRN (03:34)
[2019-04-28 04:45] LABS: Basophils % 0.1 %; Eosinophils % 0.5 %; Hematocrit 35.7 % (35.3-44.9); Immature Granulocytes % 0.3 % (0-4); Mean Corpuscular HGB Conc 31.7 g/dL (31.6-35.5); Mean Corpuscular Hemoglobin 29.8 pg (28.0-33.3); Mean Corpuscular Volume 94.2 fL (83.0-100.0); Mean Platelet Volume 9.7 fL (9.4-12.4); Monocytes # 0.9 K/mcL (0.0-1.3); Monocytes % 11.3 %; Neutrophils # 5.6 K/mcL (1.6-8.9); Platelet Count 185 K/mcL (140-400); Red Blood Count 3.79 M/mcL (3.82-4.97); Red Cell Distribution Width 15.1 % (11.5-14.5); Segmented Neutrophils % 74.8 %; White Blood Count 7.5 K/mcL (4.3-11.1)
[2019-04-28 04:46] LABS: Hemoglobin 11.3 g/dL (11.5-15.4)
[2019-04-28 04:59] LABS: INR 2.6; Prothrombin Time 29.9 Seconds (9.4-12.1)
[2019-04-28 05:07] LABS: Calcium 9.1 mg/dL (8.6-10.3)
[2019-04-28] MEDS: amLODIPine 5 MG TABLET PO SCH (09:13)
[2019-04-28] MEDS: Cholecalciferol (D-3) 1,000 UNIT (25MCG) TABLET PO SCH (09:13)
[2019-04-28] MEDS: Metoprolol 100 MG TABLET PO SCH (09:13)
[2019-04-28] MEDS: cefTRIAXone 1,000 MG in Water for inj. (sterile) 10 ML IVP SCH (09:13)
[2019-04-28] MEDS: Azithromycin 500 MG in 0.9 % Sodium Chloride 250 ML IVPB SCH (12:16)
[2019-04-28] MEDS ORDERED: Sennosides/Docusate Sodium TABLET PO PRN (16:11)
[2019-04-28] MEDS ORDERED: *HR* Phytonadione 5 MG TABLET PO ONE (16:18)
[2019-04-29] MEDS: *HR* OxyCODONE Immed Rel 5 MG TABLET PO PRN ×2 (02:43→19:39)
[2019-04-29 05:31] LABS: Basophils % 0.1 %; Eosinophils # 0.1 K/mcL (0.0-0.6); Eosinophils % 0.6 %; Hematocrit 36.3 % (35.3-44.9); Hemoglobin 11.5 g/dL (11.5-15.4); Immature Granulocytes % 0.2 % (0-4); Lymphocytes # 1.3 K/mcL (0.6-4.6); Lymphocytes % 13.7 %; Mean Corpuscular HGB Conc 31.7 g/dL (31.6-35.5); Mean Corpuscular Hemoglobin 29.9 pg (28.0-33.3); Mean Corpuscular Volume 94.5 fL (83.0-100.0); Mean Platelet Volume 10.2 fL (9.4-12.4); Monocytes # 1.1 K/mcL (0.0-1.3); Monocytes % 11.1 %; Platelet Count 181 K/mcL (140-400); Red Blood Count 3.84 M/mcL (3.82-4.97); Segmented Neutrophils % 74.3 %; White Blood Count 9.4 K/mcL (4.3-11.1)
[2019-04-29 05:33] LABS: INR 1.7; Prothrombin Time 19.8 Seconds (9.4-12.1)
[2019-04-29 05:50] LABS: Calcium 9.4 mg/dL (8.6-10.3); Potassium 4.1 mEq/L (3.5-5.1)
[2019-04-29] MEDS: amLODIPine 5 MG TABLET PO SCH (07:51)
[2019-04-29] MEDS: Metoprolol 100 MG TABLET PO SCH (07:51)
[2019-04-29] MEDS: cefTRIAXone 1,000 MG in Water for inj. (sterile) 10 ML IVP SCH (07:52)
[2019-04-29] MEDS: Cholecalciferol (D-3) 1,000 UNIT (25MCG) TABLET PO SCH (07:58)
[2019-04-29] MEDS: Azithromycin 500 MG in 0.9 % Sodium Chloride 250 ML IVPB SCH (12:21)
[2019-04-29] MEDS ORDERED: *HR* FentaNYL (PF) 100 MCG/2 ML VIAL ONE (16:09)
[2019-04-29] MEDS ORDERED: Dexamethasone 4 MG/ML VIAL ONE (16:09)
[2019-04-29] MEDS ORDERED: Ondansetron 4 MG/2 ML VIAL ONE (16:09)
[2019-04-29] MEDS ORDERED: Lidocaine -MPF 2% 2 ML VIAL ONE (16:09)
[2019-04-29] MEDS ORDERED: *HR* Succinylcholine 200 MG/10 ML VIAL IVP ONE (16:09)
[2019-04-29] MEDS ORDERED: *HR* Propofol 200 MG/20 ML VIAL IVP ONE (16:09)
[2019-04-29] MEDS ORDERED: Acetaminophen IV 1,000 MG/100 ML INFUS..BTL ONE (17:25)
[2019-04-29] MEDS ORDERED: *HR* PHENYLEPHRINE 1,000 MCG/10 ML SYRINGE IVP ONE ×2 (17:33→18:21)
[2019-04-29] MEDS ORDERED: *HR* FentaNYL (PF) 100 MCG/2 ML VIAL IVP PRN ×2 (17:35→19:40)
[2019-04-29] MEDS ORDERED: Ondansetron 4 MG/2 ML VIAL IVP ONE ×2 (17:35→19:40)
[2019-04-29] MEDS ORDERED: Sennosides/Docusate Sodium TABLET PO PRN (19:40)
[2019-04-29] MEDS ORDERED: Acetaminophen 325 MG TABLET PO PRN (19:40)
[2019-04-29] MEDS ORDERED: Naloxone 0.4 MG/ML INJ IVP PRN (19:40)
[2019-04-29 20:06] LABS: Hematocrit 36.8 % (35.3-44.9); Hemoglobin 11.4 g/dL (11.5-15.4)
[2019-04-29] MEDS: ceFAZolin 2,000 MG in 0.9 % Sodium Chloride 100 ML IVPB SCH (22:59)
[2019-04-30 04:09] LABS: Hemoglobin 11.1 g/dL (11.5-15.4); Mean Corpuscular HGB Conc 30.8 g/dL (31.6-35.5); Mean Corpuscular Hemoglobin 29.4 pg (28.0-33.3); Mean Corpuscular Volume 95.5 fL (83.0-100.0); Mean Platelet Volume 9.9 fL (9.4-12.4); Platelet Count 174 K/mcL (140-400); Red Blood Count 3.77 M/mcL (3.82-4.97); White Blood Count 10.1 K/mcL (4.3-11.1)
[2019-04-30 04:26] LABS: Calcium 9.3 mg/dL (8.6-10.3); Potassium 4.7 mEq/L (3.5-5.1)
[2019-04-30] MEDS: ceFAZolin 2,000 MG in 0.9 % Sodium Chloride 100 ML IVPB SCH (08:23)
[2019-04-30] MEDS: Aspirin 81 MG TAB.CHEW PO SCH (08:24)
[2019-04-30] MEDS: amLODIPine 5 MG TABLET PO SCH (08:24)
[2019-04-30] MEDS: Metoprolol 100 MG TABLET PO SCH (08:24)
[2019-04-30] MEDS: Cholecalciferol (D-3) 1,000 UNIT (25MCG) TABLET PO SCH (08:24)
[2019-04-30] MEDS ORDERED: Azithromycin 500 MG in 0.9 % Sodium Chloride 250 ML IVPB SCH (12:00)
[2019-04-30] MEDS: *HR* OxyCODONE Immed Rel 5 MG TABLET PO PRN ×2 (12:54→20:25)
[2019-04-30] MEDS ORDERED: cefTRIAXone 1,000 MG in Water for inj. (sterile) 10 ML IVP SCH (18:00)
[2019-05-01] MEDS: Aspirin 81 MG TAB.CHEW PO SCH (07:42)
[2019-05-01] MEDS: Cholecalciferol (D-3) 1,000 UNIT (25MCG) TABLET PO SCH (07:42)
[2019-05-01] MEDS: Metoprolol 100 MG TABLET PO SCH (07:42)
[2019-05-01] MEDS: amLODIPine 5 MG TABLET PO SCH (07:42)
[2019-05-01] MEDS ORDERED: Sennosides/Docusate Sodium TABLET PO SCH (10:00)
[2019-05-01 10:30] VITALS: BP 132/82
== END 2019-05-01 14:45 ==
LOC: EMEROOARM 09:23 → 3NENU 09:23 → SUATTDRO 12:00 → OBSVTOIN 12:00 → 3NENU 12:37
PROVIDERS: ADMIT Internal Medicine; ATTEND Internal Medicine

== ENCOUNTER 2019-07-17 07:37 | Inpatient (IN) ==
[2019-07-17] MEDS ORDERED: Ipratropium/Albuterol Neb 3 ML IH ONE (07:48)
[2019-07-17] MEDS ORDERED: methylPREDNISolone 125 MG/2 ML VIAL IVP ONE (07:48)
[2019-07-17 07:59] LABS: Basophils % 0.2 %; Eosinophils # 0.1 K/mcL (0.0-0.6); Eosinophils % 1.2 %; Hematocrit 38.7 % (35.3-44.9); Hemoglobin 11.4 g/dL (11.5-15.4); Immature Granulocytes % 0.4 % (0-4); Lymphocytes # 1.3 K/mcL (0.6-4.6); Lymphocytes % 15.2 %; Mean Corpuscular HGB Conc 29.5 g/dL (31.6-35.5); Mean Corpuscular Hemoglobin 27.4 pg (28.0-33.3); Mean Platelet Volume 9.5 fL (9.4-12.4); Monocytes # 0.7 K/mcL (0.0-1.3); Monocytes % 8.3 %; Neutrophils # 6.1 K/mcL (1.6-8.9); Platelet Count 238 K/mcL (140-400); Red Blood Count 4.16 M/mcL (3.82-4.97); Red Cell Distribution Width 15.7 % (11.5-14.5); Segmented Neutrophils % 74.7 %; White Blood Count 8.2 K/mcL (4.3-11.1)
[2019-07-17 08:09] LABS: INR 3.1
[2019-07-17 08:11] LABS: Activated Partial Thrombo Time 42.7 Seconds (26.0-36.0)
[2019-07-17 08:22] LABS: Alanine Aminotransferase 12 Units/L (7-52); Albumin 4.3 g/dL (3.5-5.7); Albumin/Globulin Ratio 1.2 (1.1-2.2); Alkaline Phosphatase 102 Units/L (34-104); Aspartate Amino Transferase 22 Units/L (13-39); BUN/Creatinine Ratio 15 (6-26); Bilirubin,Direct 0.5 mg/dL (0.0-0.2); Bilirubin,Indirect 1.2 mg/dL (0.0-1.0); Bilirubin,Total 1.7 mg/dL (0.3-1.0); Blood Urea Nitrogen 24 mg/dL (8-23); C-Reactive Protein < 5 mg/L (Less than 10); Calcium 10.5 mg/dL (8.6-10.3); Carbon Dioxide 26 mEq/L (23-29); Chloride 104 mEq/L (98-107); Globulin 3.6 g/dL (2.4-3.5); Glucose 110 mg/dL (70-105); Lactate Dehydrogenase 188 Units/L (140-271); Magnesium 2.2 mg/dL (1.6-2.6); Osmolality,Calculated 291 (280-300); Potassium 3.9 mEq/L (3.5-5.1); Sodium 138 mEq/L (136-145); Total Protein 7.9 g/dL (6.4-8.9); Troponin I < 0.03 ng/mL (< 0.04); eGFR For African Americans 36 (> 60); eGFR For Non-African Americans 30 (> 60)
[2019-07-17] MEDS ORDERED: Furosemide 40 MG/4 ML VIAL IVP ONE (08:25)
[2019-07-17 08:41] LABS: Ferritin 42 ng/mL (10-120)
[2019-07-17] MEDS ORDERED: Isovue-370 500 ML BOTTLE IVP ONE (08:46)
[2019-07-17] MEDS ORDERED: Aminoglycoside Consult 1 EACH MC ONE (08:59)
[2019-07-17 10:02] LABS: Bilirubin,Urine Negative (Negative); Blood,Urine Negative (Negative); Clarity,Urine Clear (Clear); Color,Urine Yellow (Yellow); Glucose,Urine (UA) Normal (Normal); Ketones,Urine Negative (Negative); Leukocyte Esterase,Urine Moderate (Negative); Nitrite,Urine Negative (Negative); Protein,Urine Trace mg/dL (Neg-Trace); Specific Gravity,Urine 1.015 (1.010-1.025); Urobilinogen,Urine Normal (Normal)
[2019-07-17 10:05] LABS: Bacteria,Urine None Seen per hpf (None-Few); Hyaline Casts,Urine None Seen per lpf (None-Few); RBC,Urine 0-3 per hpf (0-3); Squamous Epithelial Cell,Urine Many per lpf (None-Few)
[2019-07-17] MEDS ORDERED: Naloxone 0.4 MG/ML INJ IVP PRN (11:39)
[2019-07-17] MEDS ORDERED: Ipratropium/Albuterol Neb 3 ML IH PRN (11:45)
[2019-07-17] MEDS ORDERED: *HR* Heparin 5,000 UNIT/ML VIAL SQ SCH (14:00)
[2019-07-17] MEDS ORDERED: *HR* Warfarin 3 MG TABLET PO ONE (18:00)
[2019-07-17] MEDS ORDERED: Warfarin perPT PO PRN (18:00)
[2019-07-18 01:25] LABS: Immature Granulocytes % 0.6 % (0-4); Lymphocytes # 0.5 K/mcL (0.6-4.6); Lymphocytes % 5.3 %; Mean Corpuscular HGB Conc 30.3 g/dL (31.6-35.5); Mean Corpuscular Volume 92.4 fL (83.0-100.0); Mean Platelet Volume 9.7 fL (9.4-12.4); Monocytes # 0.1 K/mcL (0.0-1.3); Monocytes % 1.2 %; Neutrophils # 8.6 K/mcL (1.6-8.9); Platelet Count 218 K/mcL (140-400); Red Blood Count 3.57 M/mcL (3.82-4.97); Red Cell Distribution Width 15.8 % (11.5-14.5); Segmented Neutrophils % 92.9 %; White Blood Count 9.3 K/mcL (4.3-11.1)
[2019-07-18 01:29] LABS: INR 3.7; Prothrombin Time 41.9 Seconds (9.4-12.1)
[2019-07-18 01:46] LABS: Calcium 9.8 mg/dL (8.6-10.3); Potassium 4.7 mEq/L (3.5-5.1)
[2019-07-18 07:37] LABS: Acinetobacter baumannii by PCR Not Detected (Not Detect); Candida albicans by PCR Not Detected (Not Detect); Candida glabrata by PCR Not Detected (Not Detect); Candida krusei by PCR Not Detected (Not Detect); Candida parapsilosis by PCR Not Detected (Not Detect); Candida tropicalis by PCR Not Detected (Not Detect); Enterobacter cloacae Cmplx PCR Not Detected (Not Detect); Enterobacteriaceae by PCR Not Detected (Not Detect); Enterococcus by PCR Not Detected (Not Detect); Escherichia coli by PCR Not Detected (Not Detect); Klebsiella oxytoca by PCR Not Detected (Not Detect); Klebsiella pneumoniae by PCR Not Detected (Not Detect); Proteus by PCR Not Detected (Not Detect); Pseudomonas aeruginosa by PCR Not Detected (Not Detect); Serratia marcescens by PCR Not Detected (Not Detect); Staphylococcus aureus by PCR Not Detected (Not Detect); Staphylococcus by PCR DETECTED (Not Detect); Streptococcus agalactiae(B)PCR Not Detected (Not Detect); Streptococcus by PCR Not Detected (Not Detect); Streptococcus pneumoniae PCR Not Detected (Not Detect); Streptococcus pyogenes (A) PCR Not Detected (Not Detect); mecA Methicillin-Resist Gene DETECTED (Not Detect)
[2019-07-18] MEDS ORDERED: Furosemide 40 MG/4 ML VIAL IVP SCH (09:00)
[2019-07-18] MEDS ORDERED: Metoprolol 100 MG TABLET PO SCH (09:00)
[2019-07-18] MEDS: amLODIPine 5 MG TABLET PO SCH (09:28)
[2019-07-18] MEDS: Furosemide 40 MG TABLET PO SCH (09:28)
[2019-07-18] MEDS: Metoprolol 100 MG TABLET PO SCH (09:28)
[2019-07-18] MEDS ORDERED: Furosemide 20 MG/2 ML VIAL IVP ONE (14:15)
[2019-07-19 01:24] LABS: Hematocrit 34.9 % (35.3-44.9); Hemoglobin 10.9 g/dL (11.5-15.4); Mean Corpuscular HGB Conc 31.2 g/dL (31.6-35.5); Mean Corpuscular Volume 89.7 fL (83.0-100.0); Mean Platelet Volume 9.7 fL (9.4-12.4); Platelet Count 267 K/mcL (140-400); Red Blood Count 3.89 M/mcL (3.82-4.97)
[2019-07-19 01:25] LABS: INR 3.7; Prothrombin Time 42.3 Seconds (9.4-12.1)
[2019-07-19 01:39] LABS: Calcium 10.2 mg/dL (8.6-10.3); Potassium 4.7 mEq/L (3.5-5.1)
[2019-07-19] MEDS ORDERED: cefTRIAXone 2,000 MG in 0.9 % Sodium Chloride Mini Bag 100 ML IVPB SCH (06:00)
[2019-07-19] MEDS: Cholecalciferol (D-3) 1,000 UNIT (25MCG) TABLET PO SCH (07:51)
[2019-07-19] MEDS: amLODIPine 5 MG TABLET PO SCH (07:51)
[2019-07-19] MEDS: Metoprolol 100 MG TABLET PO SCH (07:52)
[2019-07-19] MEDS: Furosemide 40 MG TABLET PO SCH (07:52)
[2019-07-19] MEDS ORDERED: Vancomycin 1 EACH in 0.9 % Sodium Chloride 250 ML IVPB SCH (09:00)
[2019-07-19 13:35] LABS: Sodium, Urine 55.8 mEq/L
[2019-07-19] MEDS ORDERED: 0.9 % Sodium Chloride 1,000 ML IVC SCH (15:15)
[2019-07-19 15:53] LABS: Basophils % 0.1 %; Eosinophils % 0.1 %; Hematocrit 34.6 % (35.3-44.9); Hemoglobin 10.5 g/dL (11.5-15.4); Immature Granulocytes % 0.5 % (0-4); Lymphocytes # 0.9 K/mcL (0.6-4.6); Mean Corpuscular HGB Conc 30.3 g/dL (31.6-35.5); Mean Corpuscular Hemoglobin 27.2 pg (28.0-33.3); Mean Corpuscular Volume 89.6 fL (83.0-100.0); Mean Platelet Volume 9.8 fL (9.4-12.4); Monocytes % 7.9 %; Neutrophils # 10.3 K/mcL (1.6-8.9); Platelet Count 244 K/mcL (140-400); Red Blood Count 3.86 M/mcL (3.82-4.97); Red Cell Distribution Width 16.1 % (11.5-14.5); Segmented Neutrophils % 84.4 %; White Blood Count 12.1 K/mcL (4.3-11.1)
[2019-07-20 05:04] LABS: Hematocrit 32.8 % (35.3-44.9); Hemoglobin 10.1 g/dL (11.5-15.4); Mean Corpuscular HGB Conc 30.8 g/dL (31.6-35.5); Mean Corpuscular Hemoglobin 27.6 pg (28.0-33.3); Mean Corpuscular Volume 89.6 fL (83.0-100.0); Mean Platelet Volume 9.8 fL (9.4-12.4); Platelet Count 213 K/mcL (140-400); Red Blood Count 3.66 M/mcL (3.82-4.97); White Blood Count 10.6 K/mcL (4.3-11.1)
[2019-07-20 05:16] LABS: % Iron Saturation 8 % (15-50); Iron 27 mcg/dL (50-170); Transferrin 254 mg/dL (203-362)
[2019-07-20 05:17] LABS: Calcium 9.2 mg/dL (8.6-10.3); INR 2.9; Potassium 4.2 mEq/L (3.5-5.1); Prothrombin Time 32.5 Seconds (9.4-12.1)
[2019-07-20] MEDS: Metoprolol 100 MG TABLET PO SCH (08:55)
[2019-07-20] MEDS: amLODIPine 5 MG TABLET PO SCH (08:55)
[2019-07-20] MEDS: Cholecalciferol (D-3) 1,000 UNIT (25MCG) TABLET PO SCH (08:56)
[2019-07-20] MEDS: Piperacillin/Tazobactam 3.375 GM in 0.9 % Sodium Chloride Mini Bag 100 ML IVPB SCH ×2 (16:00→23:34)
[2019-07-20] MEDS ORDERED: *HR* Warfarin 3 MG TABLET PO ONE (18:00)
[2019-07-21 06:40] LABS: Hematocrit 34.9 % (35.3-44.9); Hemoglobin 10.7 g/dL (11.5-15.4); Mean Corpuscular HGB Conc 30.7 g/dL (31.6-35.5); Mean Corpuscular Hemoglobin 27.4 pg (28.0-33.3); Mean Corpuscular Volume 89.5 fL (83.0-100.0); Mean Platelet Volume 9.8 fL (9.4-12.4); Platelet Count 214 K/mcL (140-400); Red Cell Distribution Width 15.9 % (11.5-14.5); White Blood Count 10.9 K/mcL (4.3-11.1)
[2019-07-21 06:44] LABS: INR 2.8; Prothrombin Time 31.6 Seconds (9.4-12.1)
[2019-07-21 06:59] LABS: Calcium 9.1 mg/dL (8.6-10.3); Potassium 4.3 mEq/L (3.5-5.1)
[2019-07-21] MEDS: Piperacillin/Tazobactam 3.375 GM in 0.9 % Sodium Chloride Mini Bag 100 ML IVPB SCH ×2 (08:36→20:39)
[2019-07-21] MEDS: Cholecalciferol (D-3) 1,000 UNIT (25MCG) TABLET PO SCH (09:48)
[2019-07-21] MEDS: amLODIPine 5 MG TABLET PO SCH (09:48)
[2019-07-21] MEDS: Furosemide 40 MG TABLET PO SCH (09:48)
[2019-07-21] MEDS: Metoprolol 100 MG TABLET PO SCH (09:48)
[2019-07-21] MEDS ORDERED: *HR* Warfarin 3 MG TABLET PO ONE (18:00)
[2019-07-22 03:59] LABS: Hemoglobin 10.6 g/dL (11.5-15.4); INR 2.9; Mean Corpuscular HGB Conc 30.3 g/dL (31.6-35.5); Mean Corpuscular Hemoglobin 27.3 pg (28.0-33.3); Mean Corpuscular Volume 90.2 fL (83.0-100.0); Mean Platelet Volume 10.4 fL (9.4-12.4); Platelet Count 218 K/mcL (140-400); Prothrombin Time 32.5 Seconds (9.4-12.1); Red Blood Count 3.88 M/mcL (3.82-4.97); Red Cell Distribution Width 15.9 % (11.5-14.5); White Blood Count 12.9 K/mcL (4.3-11.1)
[2019-07-22 04:25] LABS: Calcium 9.4 mg/dL (8.6-10.3); Potassium 3.8 mEq/L (3.5-5.1)
[2019-07-22] MEDS: Piperacillin/Tazobactam 3.375 GM in 0.9 % Sodium Chloride Mini Bag 100 ML IVPB SCH ×2 (08:00→21:07)
[2019-07-22] MEDS: amLODIPine 5 MG TABLET PO SCH (08:01)
[2019-07-22] MEDS: Furosemide 40 MG TABLET PO SCH (08:01)
[2019-07-22] MEDS: Metoprolol 100 MG TABLET PO SCH (08:01)
[2019-07-22] MEDS: Cholecalciferol (D-3) 1,000 UNIT (25MCG) TABLET PO SCH (08:01)
[2019-07-22] MEDS: Ondansetron ODT 4 MG TAB.RAPDIS SL PRN (11:20)
[2019-07-22] MEDS ORDERED: Isovue-370 500 ML BOTTLE IVP ONE (11:22)
[2019-07-22] MEDS ORDERED: *HR* Promethazine 25 MG/ML VIAL IVP ONE (12:54)
[2019-07-22] MEDS ORDERED: Isovue-370 500 ML BOTTLE PO ONE (15:06)
[2019-07-22] MEDS ORDERED: *HR* Warfarin 3 MG TABLET PO ONE (18:00)
[2019-07-23 02:11] LABS: Hemoglobin 10.7 g/dL (11.5-15.4); Mean Corpuscular HGB Conc 30.6 g/dL (31.6-35.5); Mean Corpuscular Hemoglobin 27.3 pg (28.0-33.3); Mean Corpuscular Volume 89.3 fL (83.0-100.0); Mean Platelet Volume 10.3 fL (9.4-12.4); Platelet Count 229 K/mcL (140-400); Red Blood Count 3.92 M/mcL (3.82-4.97); Red Cell Distribution Width 15.6 % (11.5-14.5); White Blood Count 14.1 K/mcL (4.3-11.1)
[2019-07-23 02:16] LABS: INR 3.1; Prothrombin Time 34.8 Seconds (9.4-12.1)
[2019-07-23 02:29] LABS: Potassium 3.4 mEq/L (3.5-5.1)
[2019-07-23 08:18] LABS: Basophils % 0.1 %; Eosinophils # 0.1 K/mcL (0.0-0.6); Eosinophils % 0.5 %; Immature Granulocytes % 0.5 % (0-4); Lymphocytes # 0.5 K/mcL (0.6-4.6); Lymphocytes % 3.2 %; Monocytes # 0.7 K/mcL (0.0-1.3); Monocytes % 4.8 %; Neutrophils # 12.9 K/mcL (1.6-8.9); Segmented Neutrophils % 90.9 %
[2019-07-23] MEDS: Piperacillin/Tazobactam 3.375 GM in 0.9 % Sodium Chloride Mini Bag 100 ML IVPB SCH ×2 (08:54→21:57)
[2019-07-23] MEDS: amLODIPine 5 MG TABLET PO SCH (08:57)
[2019-07-23] MEDS: Metoprolol 100 MG TABLET PO SCH (08:57)
[2019-07-23] MEDS: Cholecalciferol (D-3) 1,000 UNIT (25MCG) TABLET PO SCH (08:58)
[2019-07-24] MEDS ORDERED: MetroNIDAZOLE 500 MG/100 ML 500 MG/100 ML BAG IVPB SCH
[2019-07-24] MEDS: MetroNIDAZOLE 500 MG/100 ML 500 MG/100 ML BAG IVPB SCH ×3 (01:48→13:32)
[2019-07-24 04:12] LABS: Hemoglobin 10.1 g/dL (11.5-15.4); Mean Corpuscular HGB Conc 29.7 g/dL (31.6-35.5); Mean Corpuscular Hemoglobin 26.6 pg (28.0-33.3); Mean Corpuscular Volume 89.7 fL (83.0-100.0); Mean Platelet Volume 9.7 fL (9.4-12.4); Platelet Count 231 K/mcL (140-400); Red Blood Count 3.79 M/mcL (3.82-4.97); Red Cell Distribution Width 15.5 % (11.5-14.5); White Blood Count 9.4 K/mcL (4.3-11.1)
[2019-07-24 04:16] LABS: INR 3.3; Prothrombin Time 37.1 Seconds (9.4-12.1)
[2019-07-24 04:33] LABS: Potassium 3.4 mEq/L (3.5-5.1)
[2019-07-24] MEDS: Cholecalciferol (D-3) 1,000 UNIT (25MCG) TABLET PO SCH (07:54)
[2019-07-24] MEDS: Metoprolol 100 MG TABLET PO SCH (07:54)
[2019-07-24] MEDS ORDERED: Potassium Chloride Elixir 20 MEQ/15 ML UDC PO ONE (09:00)
[2019-07-24] MEDS: Piperacillin/Tazobactam 3.375 GM in 0.9 % Sodium Chloride Mini Bag 100 ML IVPB SCH ×2 (09:14→20:21)
[2019-07-24] MEDS ORDERED: Furosemide 20 MG TABLET PO ONE (10:19)
[2019-07-24 10:57] LABS: Bilirubin,Urine Negative (Negative); Blood,Urine Moderate (Negative); Clarity,Urine Cloudy (Clear); Color,Urine Yellow (Yellow); Glucose,Urine (UA) Normal (Normal); Ketones,Urine Negative (Negative); Leukocyte Esterase,Urine Negative (Negative); Nitrite,Urine Negative (Negative); PH,Urine 5.5 pH Units (5.0-8.0); Protein,Urine 30 mg/dL (Neg-Trace); Urobilinogen,Urine Normal (Normal)
[2019-07-24 10:58] LABS: Bacteria,Urine None Seen per hpf (None-Few); Hyaline Casts,Urine None Seen per lpf (None-Few); Squamous Epithelial Cell,Urine Moderate per lpf (None-Few)
[2019-07-25] MEDS: MetroNIDAZOLE 500 MG/100 ML 500 MG/100 ML BAG IVPB SCH ×3 (00:24→16:31)
[2019-07-25 01:06] LABS: Hematocrit 32.4 % (35.3-44.9); Hemoglobin 10.1 g/dL (11.5-15.4); Mean Corpuscular HGB Conc 31.2 g/dL (31.6-35.5); Mean Corpuscular Hemoglobin 27.5 pg (28.0-33.3); Mean Corpuscular Volume 88.3 fL (83.0-100.0); Mean Platelet Volume 9.6 fL (9.4-12.4); Platelet Count 255 K/mcL (140-400); Red Blood Count 3.67 M/mcL (3.82-4.97); Red Cell Distribution Width 15.3 % (11.5-14.5); White Blood Count 10.2 K/mcL (4.3-11.1)
[2019-07-25 01:10] LABS: INR 3.2; Prothrombin Time 35.9 Seconds (9.4-12.1)
[2019-07-25 01:26] LABS: Calcium 9.4 mg/dL (8.6-10.3); Potassium 3.9 mEq/L (3.5-5.1)
[2019-07-25] MEDS: Cholecalciferol (D-3) 1,000 UNIT (25MCG) TABLET PO SCH (07:50)
[2019-07-25] MEDS: Metoprolol 100 MG TABLET PO SCH (07:50)
[2019-07-25] MEDS: Ondansetron ODT 4 MG TAB.RAPDIS SL PRN (07:56)
[2019-07-25] MEDS: Piperacillin/Tazobactam 3.375 GM in 0.9 % Sodium Chloride Mini Bag 100 ML IVPB SCH ×2 (08:51→20:20)
[2019-07-25] MEDS ORDERED: Ondansetron 4 MG/2 ML VIAL IVP PRN (11:44)
[2019-07-25] MEDS ORDERED: 0.9 % Sodium Chloride 500 ML IVC SCH (11:45)
[2019-07-25] MEDS ORDERED: Iron Sucrose Complex 400 MG in 0.9 % Sodium Chloride 250 ML IVPB ONE (11:56)
[2019-07-26] MEDS: MetroNIDAZOLE 500 MG/100 ML 500 MG/100 ML BAG IVPB SCH ×2 (00:16→07:21)
[2019-07-26 02:35] LABS: Basophils % 0.2 %; Eosinophils # 0.2 K/mcL (0.0-0.6); Eosinophils % 2.2 %; Hematocrit 31.8 % (35.3-44.9); Hemoglobin 9.7 g/dL (11.5-15.4); Immature Granulocytes % 1.3 % (0-4); Lymphocytes # 0.6 K/mcL (0.6-4.6); Lymphocytes % 7.3 %; Mean Corpuscular HGB Conc 30.5 g/dL (31.6-35.5); Mean Corpuscular Hemoglobin 26.9 pg (28.0-33.3); Mean Corpuscular Volume 88.1 fL (83.0-100.0); Mean Platelet Volume 9.7 fL (9.4-12.4); Monocytes # 0.7 K/mcL (0.0-1.3); Monocytes % 8.6 %; Neutrophils # 6.6 K/mcL (1.6-8.9); Platelet Count 257 K/mcL (140-400); Red Blood Count 3.61 M/mcL (3.82-4.97); Red Cell Distribution Width 15.5 % (11.5-14.5); Segmented Neutrophils % 80.4 %; White Blood Count 8.2 K/mcL (4.3-11.1)
[2019-07-26 02:54] LABS: Calcium 9.2 mg/dL (8.6-10.3); Potassium 3.8 mEq/L (3.5-5.1)
[2019-07-26 02:55] LABS: Bilirubin,Direct 0.4 mg/dL (0.0-0.2); Bilirubin,Indirect 0.5 mg/dL (0.0-1.0); Bilirubin,Total 0.9 mg/dL (0.3-1.0); Globulin 2.9 g/dL (2.4-3.5); Total Protein 5.9 g/dL (6.4-8.9)
[2019-07-26] MEDS: Cholecalciferol (D-3) 1,000 UNIT (25MCG) TABLET PO SCH (07:22)
[2019-07-26] MEDS: Sennosides/Docusate Sodium TABLET PO SCH (07:22)
[2019-07-26] MEDS: Metoprolol 100 MG TABLET PO SCH (07:22)
[2019-07-26 07:26] LABS: INR 2.5; Prothrombin Time 28.5 Seconds (9.4-12.1)
[2019-07-26] MEDS: Piperacillin/Tazobactam 3.375 GM in 0.9 % Sodium Chloride Mini Bag 100 ML IVPB SCH ×2 (09:19→20:12)
[2019-07-26] MEDS ORDERED: Furosemide 20 MG TABLET PO ONE (12:10)
[2019-07-26] MEDS ORDERED: *HR* Warfarin 1 MG TABLET PO ONE (18:00)
[2019-07-27 06:58] LABS: INR 2.7
[2019-07-27 07:15] LABS: Calcium 9.6 mg/dL (8.6-10.3); Potassium 3.7 mEq/L (3.5-5.1)
[2019-07-27] MEDS: Piperacillin/Tazobactam 3.375 GM in 0.9 % Sodium Chloride Mini Bag 100 ML IVPB SCH (07:43)
[2019-07-27] MEDS: Sennosides/Docusate Sodium TABLET PO SCH (07:44)
[2019-07-27] MEDS: Metoprolol 100 MG TABLET PO SCH (07:44)
[2019-07-27] MEDS: Cholecalciferol (D-3) 1,000 UNIT (25MCG) TABLET PO SCH (07:44)
[2019-07-27 10:31] VITALS: BP 103/61
[2019-07-27] MEDS ORDERED: *HR* Warfarin 3 MG TABLET PO ONE (18:00)
== END 2019-07-27 15:22 | DRG 291 ==
LOC: 3ANU 07:37 → EMEROOARM 07:37 → SUATTDRO 11:24 → 3ANU 12:06
PROVIDERS: ADMIT Internal Medicine; ATTEND Internal Medicine